=== PATIENT | male | born 1980 | race Two or more races ===

== ENCOUNTER 2016-09-14 09:58 | Emergency (ER) | payer MEDICAID ==
[~2016-09-14] VITALS: Ht 165.1 cm; Wt 68.0 kg
[2016-09-14 10:20] VITALS: BP 117/69
[2016-09-14] MEDS ORDERED: NKM (10:23)
[2016-09-14] MEDS ORDERED: Fluorescein Strips RIGHT EYE ONE (11:00)
[2016-09-14] MEDS ORDERED: Tetracaine 0.5% Opth Soln RIGHT EYE ONE (11:00)
[2016-09-14 12:26] VITALS: BP 112/61
--- NOTE | 2016-09-15 07:34 | Emergency Room Report ---
History of Present Illness General Chief Complaint: Eye Problems Source: Patient Present Illness HPI 35 YOM with redness to eye that he woke up with. After noticing the redness, patient endorses "feeling like something is in his eye." He is not sure if something hit his eye last night, works as cook. Denies headache, decreased vision, blurry vision, nausea/vomiting, fever/chills, wearing contacts. Never happened before. Feels well otherwise. Allergies: Coded Allergies: No Known Allergies (Unverified , 09/14/16) Patient History Past Medical History: none Past Surgical History: none Pertinent Family History: none Social History: Denies: alcohol use, drug use, smoking Immunizations: UTD Reviewed Nursing Documentation: PMH: Agreed, PSxH: Agreed Nursing Documentation-PMH Past Medical History: No Stated History Review of Systems All Other Systems: negative except mentioned in HPI Physical Exam Vital Signs Date Time Temp Pulse Resp B/P Pulse Ox O2 Delivery O2 Flow Rate FiO2 09/14/16 10:18 98.1 64 16 117/69 96 Room Air Sp02 EP Interpretation: reviewed, normal General Appearance: normal inspection, well appearing, no apparent distress, alert, GCS 15, non-toxic Head: normocephalic, atraumatic Eyes: bilateral eye other - Right eye: limbus sparing subconjunctival hemorrahge, predominantly on lateral aspect of eye. EOMI. PERRLA. Fluour stain negative for abrasion. No FB on everion of eyelids ENT: normal ENT inspection, hearing grossly normal, normal voice Neck: normal inspection, full range of motion, supple, no bony tend Respiratory: normal inspection, lungs clear, normal breath sounds, no respiratory distress, no retraction, no wheezing Cardiovascular #1: regular rate, rhythm, no edema Gastrointestinal: normal inspection, normal bowel sounds, non tender, soft, no guarding, no hernia Genitourinary: no CVA tenderness Musculoskeletal: normal inspection, back normal, normal range of motion, Omid' s Sign negative Neurologic: normal inspection, alert, oriented x3, responsive, 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 Afebrile. No FB or corneal abrasion Reassured patient it will resolve in time Cleared for return to work Understands to return to ER for worsening hemorrhage, eye pain, decrease of vision Last Vital Signs Date Time Temp Pulse Resp B/P Pulse Ox O2 Delivery O2 Flow Rate FiO2 09/14/16 12:26 98.1 64 16 112/61 96 Room Air Status: improved Disposition: HOME, SELF-CARE Condition: Improved Patient Instructions: Subconjunctival Hemorrhage DAVID CURRY M.D. Sep 15, 2016 07:34
== END 2016-09-14 12:36 | disposition home or self-care (01) ==
LOC: EMR 10:38
DX: H11.31 Conjunctival hemorrhage, right eye (principal)
CPT/HCPCS: 99282

== ENCOUNTER 2018-11-27 04:08 | Emergency (ER) | payer MEDICAID ==
[~2018-11-27] VITALS: Ht 165.1 cm; Wt 65.8 kg
[~2018-11-27 04:08] MED LIST: NKM
--- NOTE | 2018-11-27 04:15 | NUR ---
ED Nurse Note: pt came to ed c/o Right Upper Abd pain x 10 minutes, denies N/V/D ao4. vss
--- NOTE | 2018-11-27 04:20 | NUR ---
ED Nurse Note: iv access established. blood and urine collected;s ent Addendum: 11/27/18 at 0433 by L[facility]ISOST[facility] ED Nurse Note: iv access established. blood and urine collected; sent down to lab.
--- NOTE | 2018-11-27 04:24 | Emergency Room Report ---
History of Present Illness General Chief Complaint: Abdominal Pain Source: Patient Present Illness [facility] This is a 37-year-old male with no prior past medical problem. He presents with chief complaint of right lower quadrant/mid quadrant pain. No fever chills. Onset was acute. Occurred tonight. Has nausea but no vomiting but no diarrhea. Radiating to the groin. Pain is 10 out of 10. Never had this problem before. No hematuria. Allergies: Coded Allergies: No Known Allergies (Unverified , 09/14/16) Patient History Past Medical History: none, see triage record, old chart reviewed Past Surgical History: none Pertinent Family History: none Social History: Denies: smoking Immunizations: other Reviewed Nursing Documentation: PMH: Agreed; PSxH: Agreed Nursing Documentation-PMH Past Medical History: No Stated History Review of Systems Eye: Denies: eye pain, blurred vision ENT: Denies: ear pain, nose congestion, throat swelling Respiratory: Denies: cough, shortness of breath Cardiovascular: Denies: chest pain, palpitations Gastrointestinal: Reports: abdominal pain; Denies: diarrhea, nausea, vomiting Musculoskeletal: Denies: back pain, joint pain Skin: Denies: rash Neurological: Denies: headache, numbness Endocrine: Denies: increased thirst, increased urine Hematologic/Lymphatic: Denies: easy bruising All Other Systems: negative except mentioned in HPI Physical Exam Vital Signs Date Time Temp Pulse Resp B/P (MAP) Pulse Ox O2 Delivery O2 Flow Rate FiO2 11/27/18 04:10 98.1 70 16 99 Room Air vitals unremarkable Sp02 EP Interpretation: reviewed, normal General Appearance: well appearing, no apparent distress, alert Head: normocephalic, atraumatic Eyes: bilateral eye PERRL, bilateral eye EOMI ENT: hearing grossly normal, normal pharynx Neck: full range of motion, supple, no meningismus Respiratory: chest non-tender, lungs clear, normal breath sounds Cardiovascular #1: regular rate, rhythm, no murmur Gastrointestinal: normal bowel sounds, no mass, no organomegaly, no bruit, non- distended, tenderness - Right lower quadrant Musculoskeletal: back normal, gait/station normal, normal range of motion Psychiatric: mood/affect normal Skin: warm/dry Medical Decision Making Diagnostic Impression: Primary Impression: Ureteral calculus, right ER Course Patient with right flank pain. He has a 3 mm right UVJ stone. Has mild right hydronephrosis and hydroureter. No evidence of any infection. Pain is well- controlled. We'll discharge home. Lab Results Impression labs normal CT/MRI/US Diagnostic Results CT/MRI/US Diagnostic Results : Imaging Test Ordered: CT abdomen and pelvis Impression Read by radiologist. 3 mm right UVJ stone. Last Vital Signs Date Time Temp Pulse Resp B/P (MAP) Pulse Ox O2 Delivery O2 Flow Rate FiO2 11/27/18 04:10 98.1 70 16 99 Room Air Status: improved Disposition: HOME, SELF-CARE Condition: Stable Scripts Tamsulosin HCl (Flomax) 0.4 Mg Cap.er.24h 0.4 MG ORAL DAILY, #14 CAP Prov: Kang Johnson MD 11/27/18 Ibuprofen* (MOTRIN*) 600 Mg Tablet 600 MG ORAL THREE TIMES A DAY, #30 TAB 0 Refills Prov: Kang Johnson MD 11/27/18 Hydrocodone/Acetaminophen 5-325* (HYDROCODONE/ACETAMINOPHEN 5-325*) 1 Each Tablet 1 TAB ORAL Q6H PRN for For Pain, #20 TAB 0 Refills Prov: Kang Johnson MD 11/27/18 Additional Instructions: Increase fluids. Follow-up with your doctor in 7 days. You may need a referral to see a urologist. Return if worse. Kang Johnson MD November 27, 2018 04:24
[2018-11-27] MEDS ORDERED: Morphine Sulfate 4mg/ml Inj (IV USE ONLY) IVP ONE ×2 (04:30→05:15)
[2018-11-27] MEDS ORDERED: Ketorolac 30mg Inj IV ONE (04:30)
[2018-11-27 04:34] VITALS: BP 139/65
--- NOTE | 2018-11-27 04:37 | NUR ---
ED Nurse Note: pt down to ct
[2018-11-27 04:51] LABS: APPEARANCE,URINE CLEAR; BILIRUBIN, URINE NEGATIVE (NEGATIVE); COLOR,URINE PALE YELLOW; GLUCOSE, URINE (UA) NEGATIVE (NEGATIVE); KETONES,URINE NEGATIVE (NEGATIVE); LEUKOCYTE ESTERASE ,URINE NEGATIVE (NEGATIVE); NITRITE,URINE NEGATIVE (NEGATIVE); PH,URINE 7 (4.5-8.0); PROTEIN,URINE 2+ (NEGATIVE); UROBILINOGEN,URINE NORMAL MG/DL (0.0-1.0)
--- NOTE | 2018-11-27 05:00 | NUR ---
ED Nurse Note: patient back from ct. family at bedside
[2018-11-27 05:01] LABS: ANION GAP 4 mmol/L (5-15); BLOOD UREA NITROGEN 24 mg/dL (7-18); CALCIUM 9.1 MG/DL (8.5-10.1); CARBON DIOXIDE 32 MMOL/L (21-32); CHLORIDE 103 MMOL/L (98-107); CREATININE 1.1 MG/DL (0.55-1.30); POTASSIUM 3.4 MMOL/L (3.5-5.1); SODIUM 139 MMOL/L (136-145)
[2018-11-27 05:02] LABS: BASOPHILS % (AUTO) 1.2 % (0.0-2.0); EOSINOPHILS % (AUTO) 4.1 % (0.0-3.0); HEMATOCRIT 42.9 % (42.0-52.0); HEMOGLOBIN 15.1 G/DL (14.2-18.0); LYMPHOCYTES % (AUTO) 40.4 % (20.0-45.0); MEAN CORPUSCULAR VOLUME 85 FL (80-99); NEUTROPHILS % (AUTO) 48.3 % (45.0-75.0); PLATELET COUNT 198 K/UL (150-450); RED BLOOD COUNT 5.07 M/UL (4.70-6.10); RED CELL DISTRIBUTION WIDTH 11.9 % (11.6-14.8); WHITE BLOOD COUNT 9.4 K/UL (4.8-10.8)
[2018-11-27 05:05] LABS: ALANINE AMINOTRANSFERASE 39 U/L (12-78); ALBUMIN 4.3 G/DL (3.4-5.0); ALBUMIN/GLOBULIN RATIO 1.2 (1.0-2.7); ALKALINE PHOSPHATASE 104 U/L (46-116); ASPARTATE AMINO TRANSFERASE 20 U/L (15-37); BILIRUBIN,TOTAL 0.3 MG/DL (0.2-1.0)
[2018-11-27] MEDS ORDERED: HYDROmorphone 1mg/ml Carpuject IVP ONE (05:30)
[2018-11-27 05:48] VITALS: BP 121/68
[2018-11-27] MEDS ORDERED: HYDROCODON-ACE1 EA15 ORAL (05:51)
[2018-11-27] MEDS ORDERED: IBUPROFEN600 MG ORAL (05:51)
[2018-11-27] MEDS ORDERED: FLOMAX0.4 MG ORAL (05:51)
[2018-11-27 06:00] VITALS: BP 121/68
--- NOTE | 2018-11-27 06:00 | NUR ---
ER DISCHARGE NOTE: Patient is cleared to be discharged per ERMD, pt is aox4, on room air, with stable vital signs. accompanied by family member. pt was given dc and prescription instructions, pt was able to verbalize understanding, pt id band and iv site removed without complications. pt is able to ambulate with steady gait. pt took all belongings.
--- NOTE | 2018-11-27 09:07 | Diagnostic Imaging Report ---
Indication: Abdominal pain Technique: Continuous helical transaxial imaging of the abdomen and pelvis was obtained from the lung bases to the pubic symphysis. No intravenous contrast was administered. Coronal 2-D reformats were also obtained. Automatic Exposure Control was utilized. Total Dose length Product (DLP): 699.[address] Dose Index Volume (CTDIvol): 12.47 mGy Comparison: none Findings: There is a 3 mm stone just beyond the right UVJ. There is mild right hydroureteronephrosis and periureteral stranding. No other stones are identified. There is minimal increased density of the renal pyramids bilaterally likely nephrocalcinosis. The right kidney appears slightly enlarged. The lung bases are clear. Borderline hepatomegaly noted with the liver measuring about 18 cm. The gallbladder is unremarkable. There is no free fluid. Bowel gas pattern appears nonobstructed. The appendix is normal. Bladder is nondistended. Prostate calcification noted. IMPRESSION: 3 mm stone just beyond the right UVJ within the bladder. Associated mild right hydroureteronephrosis. 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 [facility] has communicated the preliminary results to the Emergency Department. Their findings are largely concordant with this report. The CT scanner at [facility] is accredited by the [employer] and the scans are performed using dose optimization techniques as appropriate to a performed exam including Automatic Exposure control.
== END 2018-11-27 06:00 | disposition home or self-care (01) ==
LOC: EDBD 04:08 → EMR 04:23
DX: N20.1 Calculus of ureter (principal)
CPT/HCPCS: 36415; 74176; 80053; 81003; 83690; 85025; 96361; 96374; 96375; 96376; 99284; J1170; J1885; J2270; J2405